=== PATIENT | female | born 1980 | race Caucasian/White ===

== ENCOUNTER 2017-05-21 16:19 | Emergency (ER) | payer OTHER ==
[~2017-05-21] VITALS: Ht 175.3 cm; Wt 104.5 kg
[~2017-05-21 16:19] MED LIST: Z.0.NO CURRENT MEDS
[2017-05-21 16:20] VITALS: BP 140/76; PULSE 102; RESP 20; TEMP 99.1; O2SAT 100
--- NOTE | 2017-05-21 16:56 | PD ---
HPI Chief Complaint: Injury Time Seen by Provider: 16:46 Travel History International Travel<30 days: No Contact w/Intl Traveler<30days: No Traveled to known affect area: No History of Present Illness HPI 36-year-old female presents to the emergency room for evaluation of right hand pain and swelling after injury just prior to arrival. Patient is primarily Slovenian-speaking but prefers to have her friend translate for her. States while at work, she was running and accidentally slammed the back of her hand against the door. She reports immediate pain. Pain is localized to the right dorsal, proximal hand with radiation into the wrist. Worse with range of motion. States she took ibuprofen with moderate relief in symptoms. She denies paresthesias. No chronic medical conditions or daily medications. PFSH Past Medical History Anxiety: No Depression: No Cancer: No Cardiovascular Problems: No Chemotherapy: No Diabetes: Yes Patient Takes Glucophage: No Endocrine: Yes (HYPOGLYCEMIA) Genitourinary: No Musculoskeletal: No Neurologic: No Psychiatric: No Reproductive: No Respiratory: No Radiation Therapy: No Tetanus Vaccination: > 5 Years Influenza Vaccination: No ?: Not LMP: 05/11/17 Past Surgical History Abdominal Surgery: No AICD: No Cardiac Surgery: No Ear Surgery: No Endocrine Surgery: No Eye Surgery: No Genitourinary Surgery: No Gynecologic Surgery: No Joint Replacement: No Oral Surgery: No Pacemaker: No Thoracic Surgery: No Other Surgery: Yes (CHILDHOOD ABDOMINAL SURGERY) Social History Alcohol Use: No Tobacco Use: No Substance Use: No Allergies-Medications (Allergen,Severity, Reaction): Coded Allergies: No Known Allergies (Verified Adverse Reaction, Unknown, 05/21/17) Reported Meds & Prescriptions Reported Meds & Active Scripts Active No Active Prescriptions or Reported Medications Review of Systems Except as stated in HPI: all other systems reviewed are Neg Physical Exam Narrative GENERAL: Well-nourished, well-developed female in no acute distress. Afebrile. Ambulatory. SKIN: Focused skin assessment warm/dry. No ecchymosis. HEAD: Normocephalic. EYES: No scleral icterus. No injection or drainage. NECK: Supple, trachea midline. No JVD or lymphadenopathy. CARDIOVASCULAR: Regular rate and rhythm without murmurs, gallops, or rubs. RESPIRATORY: Breath sounds equal bilaterally. No accessory muscle use. MUSCULOSKELETAL: No cyanosis. Mild edema over the dorsal, proximal hand. 2+ radial pulse. Less than 2 second capillary refill distally. Limited range of motion of the hand secondary to pain. Data Data Last Documented VS Vital Signs Date Time Temp Pulse Resp B/P (MAP) Pulse Ox O2 Delivery O2 Flow Rate FiO2 05/21/17 16:20 99.1 102 20 140/76 (97) 100 Room Air Orders Orders Hand, Complete ([id number]) (05/21/17 ) MDM Medical Decision Making Medical Screen Exam Complete: Yes Emergency Medical Condition: Yes Medical Record Reviewed: Yes Differential Diagnosis Fracture, sprain, strain, contusion Narrative Course 36-year-old right-handed female presents to the emergency room for evaluation of right hand pain and swelling after injury just prior to arrival. Patient accidentally slammed the back of her hand against a door causing immediate pain. Physical exam reveals mild edema over the right dorsal, proximal aspect of the hand. No obvious contusion or deformity. 2+ radial pulse. X-ray shows no acute bony abnormality. This is contusion. Patient discharged with contusion instructions and told to follow-up the primary care physician or return for worsening symptoms. She understands and agrees to plan. Diagnosis Primary Impression: Contusion of right hand Qualified Codes: S60.221A - Contusion of right hand, initial encounter Referrals: Primary Care Physician Additional Instructions: Rest and drink plenty of fluids. Take ibuprofen with food as directed, as needed for pain. Apply ice to the affected area for 20 minutes at a time, as needed for pain and swelling. Follow-up with a primary care physician. Return to the emergency room for worsening symptoms. Med/Other Pt SpecificInfo: Prescription(s) given Scripts No Active Prescriptions or Reported Meds Disposition: 01 DISCHARGE HOME Condition: Stable Antonette Fink May 21, 2017 16:56
--- NOTE | 2017-05-21 17:37 | RADRPT ---
EXAM DATE/TIME: 05/21/2017 17:21 [facility] COMPARISON: No previous studies available for comparison. INDICATIONS : Right hand pain after patient slammed hand in door today MEDICAL HISTORY : None. SURGICAL HISTORY : None. ENCOUNTER: Initial ACUITY: 1 day PAIN SCORE: 7/10 LOCATION: Right entire hand FINDINGS: Three view examination of the right hand demonstrates no soft tissue swelling, dislocation, or fractu re. The carpal bones appear intact. The interphalangeal and metacarpophalangeal joints are intact. Bony mineralization is normal. CONCLUSION: 1. There is no evidence of acute fracture. Gilberto Doan MD on May 21, 2017 at 17:34 Board Certified Radiologist. This report was verified electronically.
== END 2017-05-21 17:57 | disposition home or self-care (01) ==
LOC: NEPK 16:19
DX: S60.221A Contusion of right hand, initial encounter (principal); W22.8XXA Striking against or struck by other objects, initial encounter; E11.9 Type 2 diabetes mellitus without complications
CPT/HCPCS: 73130; 99283

== ENCOUNTER 2017-05-26 13:59 | Emergency (ER) | payer OTHER ==
[~2017-05-26] VITALS: Ht 175.3 cm; Wt 104.5 kg
[2017-05-26 14:00] VITALS: BP 138/67; PULSE 89; RESP 14; TEMP 98.3; O2SAT 98
[2017-05-26 17:24] LABS: BILIRUBIN, URINE NEG (NEG); BLOOD, URINE SMALL (NEG); GLUCOSE,URINE NEG (NEG); KETONE, URINE NEG (NEG); MUCUS URINE FEW /lpf (OCC); NITRITE,URINE NEG (NEG); PH, URINE 6.5 (5.0-8.5); SQUAMOUS EPITHELIAL CELL URINE 2 /hpf (0-5); URINE COLOR LIGHT-YELLOW (YELLW/STRAW); URINE LEUKOCYTE ESTERASE NEG (NEG)
[2017-05-26 17:35] LABS: AUTOMATED NEUTROPHIL # 9.7 TH/MM3 (1.8-7.7); BASOPHIL # 0.1 TH/MM3 (0-0.2); BASOPHIL % 0.8 % (0.0-2.0); EOSINOPHIL # 0.1 TH/MM3 (0-0.4); EOSINOPHIL % 0.9 % (0.0-4.0); HEMATOCRIT 41.7 % (35.0-46.0); HEMOGLOBIN 14.4 GM/DL (11.6-15.3); LYMPHOCYTE # 2.8 TH/MM3 (1.0-4.8); MEAN CELL VOLUME 84.8 FL (80.0-100.0); MEAN CORPUSCULAR HEMOGLOBIN 29.2 PG (27.0-34.0); MEAN CORPUSCULAR HGB CONC 34.4 % (32.0-36.0); MEAN PLATELET VOLUME 9.4 FL (7.0-11.0); MONO % 4.3 % (0.0-8.0); MONOCYTE # 0.6 TH/MM3 (0-0.9); PLATELET COUNT 286 TH/MM3 (150-450); RED BLOOD COUNT 4.92 MIL/MM3 (4.00-5.30); RED CELL DISTRIBUTION WIDTH 14.4 % (11.6-17.2); WHITE BLOOD COUNT 13.3 TH/MM3 (4.0-11.0)
--- NOTE | 2017-05-26 17:38 | PD ---
HPI Chief Complaint: GI Complaint Time Seen by Provider: 17:30 Travel History International Travel<30 days: No Contact w/Intl Traveler<30days: No Traveled to known affect area: No History of Present Illness HPI 36-year-old female with history of diverticulitis, here for evaluation of lower abdominal pain. Patient reports that the symptoms started today, described as pressure, 8 out of 10, constant, worse with movement and palpation. She is also having some dysuria. She denies vaginal bleeding or discharge. LMP was . No vomiting or diarrhea. No fevers. Pain radiates to her back. She denies history of abdominal surgeries. PFSH Past Medical History Anxiety: No Depression: No Cancer: No Cardiovascular Problems: No Chemotherapy: No Diabetes: Yes Endocrine: Yes (HYPOGLYCEMIA) Genitourinary: No Musculoskeletal: No Neurologic: No Psychiatric: No Reproductive: No Respiratory: No Radiation Therapy: No ?: Unknown LMP: 04/11/17 Past Surgical History Abdominal Surgery: No AICD: No Cardiac Surgery: No Ear Surgery: No Endocrine Surgery: No Eye Surgery: No Genitourinary Surgery: No Gynecologic Surgery: No Joint Replacement: No Oral Surgery: No Pacemaker: No Thoracic Surgery: No Other Surgery: Yes (CHILDHOOD ABDOMINAL SURGERY) Social History Alcohol Use: No Tobacco Use: No Substance Use: No Allergies-Medications (Allergen,Severity, Reaction): Coded Allergies: No Known Allergies (Verified Adverse Reaction, Unknown, 05/26/17) Reported Meds & Prescriptions Reported Meds & Active Scripts Active No Active Prescriptions or Reported Medications Review of Systems Except as stated in HPI: all other systems reviewed are Neg Physical Exam Narrative GENERAL: Well-developed, well-nourished, overweight, comfortable, no apparent distress. SKIN: Focused skin assessment warm/dry. HEAD: Atraumatic. Normocephalic. EYES: Pupils equal and round. No scleral icterus. No injection or drainage. ENT: Mucous membranes pink and moist. NECK: Trachea midline. No JVD. CARDIOVASCULAR: Regular rate and rhythm. RESPIRATORY: No accessory muscle use. Clear to auscultation. Breath sounds equal bilaterally. GASTROINTESTINAL: Abdomen soft, nondistended. Moderate lower abdominal tenderness bilaterally as well as suprapubic tenderness without peritoneal signs. No hernias. Normal bowel sounds. MUSCULOSKELETAL: No obvious deformities. No clubbing. No cyanosis. No edema. NEUROLOGICAL: Awake and alert. No obvious cranial nerve deficits. Motor grossly within normal limits. Normal speech. PSYCHIATRIC: Appropriate mood and affect; insight and judgment normal. Data Data Last Documented VS Vital Signs Date Time Temp Pulse Resp B/P (MAP) Pulse Ox O2 Delivery O2 Flow Rate FiO2 05/26/17 14:00 98.3 89 14 138/67 (90) 98 Orders Orders Complete Blood Count With Diff (05/26/17 14:34) Comprehensive Metabolic Panel (05/26/17 14:34) Lipase (05/26/17 14:34) Urinalysis - C+S If Indicated (05/26/17 14:34) Ed Urine Pregnancytest Poc (05/26/17 14:34) Prothrombin Time / Inr (Pt) (05/26/17 17:34) Act Partial Throm Time (Ptt) (05/26/17 17:34) Ct Abd/Pel W Iv Contrast(Rout) (05/26/17 17:35) Morphine Inj (Morphine Inj) (05/26/17 17:45) Iohexol 350 Inj (Omnipaque 350 Inj) (05/26/17 20:00) Ciprofloxacin (Cipro) (05/26/17 20:30) Metronidazole (Flagyl) (05/26/17 20:30) Morphine Inj (Morphine Inj) (05/26/17 20:30) Labs Laboratory Tests Test 05/26/17 16:30 05/26/17 16:37 05/26/17 17:50 Urine Color LIGHT-YELLOW Urine Turbidity CLEAR Urine pH 6.5 Urine Specific Lennox 1.012 Urine Protein NEG mg/dL Urine Glucose (UA) NEG mg/dL Urine Ketones NEG mg/dL Urine Occult Blood SMALL Urine Nitrite NEG Urine Bilirubin NEG Urine Urobilinogen LESS THAN 2.0 MG/DL Urine Leukocyte Esterase NEG Urine RBC LESS THAN 1 /hpf Urine WBC LESS THAN 1 /hpf Urine Squamous Epithelial Cells 2 /hpf Urine Mucus FEW /lpf Microscopic Urinalysis Comment CULT NOT INDICATED White Blood Count 13.3 TH/MM3 Red Blood Count 4.92 MIL/MM3 Hemoglobin 14.4 GM/DL Hematocrit 41.7 % Mean Corpuscular Volume 84.8 FL Mean Corpuscular Hemoglobin 29.2 PG Mean Corpuscular Hemoglobin Concent 34.4 % Red Cell Distribution Width 14.4 % Platelet Count 286 TH/MM3 Mean Platelet Volume 9.4 FL Neutrophils (%) (Auto) 73.0 % Lymphocytes (%) (Auto) 21.0 % Monocytes (%) (Auto) 4.3 % Eosinophils (%) (Auto) 0.9 % Basophils (%) (Auto) 0.8 % Neutrophils # (Auto) 9.7 TH/MM3 Lymphocytes # (Auto) 2.8 TH/MM3 Monocytes # (Auto) 0.6 TH/MM3 Eosinophils # (Auto) 0.1 TH/MM3 Basophils # (Auto) 0.1 TH/MM3 CBC Comment DIFF FINAL Differential Comment Blood Urea Nitrogen 8 MG/DL Creatinine 0.66 MG/DL Random Glucose 83 MG/DL Total Protein 8.3 GM/DL Albumin 3.7 GM/DL Calcium Level 9.1 MG/DL Alkaline Phosphatase 86 U/L Aspartate Amino Transf (AST/SGOT) 15 U/L Alanine Aminotransferase (ALT/SGPT) 46 U/L Total Bilirubin 0.3 MG/DL Sodium Level 137 MEQ/L Potassium Level 3.4 MEQ/L Chloride Level 104 MEQ/L Carbon Dioxide Level 24.5 MEQ/L Anion Gap 9 MEQ/L Estimat Glomerular Filtration Rate 102 ML/MIN Lipase 87 U/L Prothrombin Time 9.6 SEC Prothromb Time International Ratio 0.9 RATIO Activated Partial Thromboplast Time 24.4 SEC [facility] Medical Decision Making Medical Screen Exam Complete: Yes Emergency Medical Condition: Yes Differential Diagnosis Appendicitis, colitis, diverticulitis, UTI, cystitis, ovarian cyst, ovarian torsion less likely, PID, TOA, Narrative Course Initial vital signs show heart rate 89, blood pressure 138/67, pulse ox 98% on room air, tympanic temp of 98.3F. CBC: WBC 13.3, hemoglobin 14.4, hematocrit 41.7, platelets 286. CMP is essentially unremarkable. Lipase is 87. UA is not suggestive of UTI. CT abdomen pelvis: CONCLUSION: Wall thickening the sigmoid colon with adjacent evidence of diverticulitis. No abscess, free fluid, or free air is identified Patient was made aware of all findings. 4 mg of IV morphine initially alleviated patient's symptoms, however on reassessment she states her pain is returning. There are no peritoneal signs on exam. She prefers to be treated as an outpatient. I believe she is stable for discharge home with oral antibiotics and outpatient follow-up with a primary care physician this week. She was advised on when to return to the emergency department. She verbalizes understanding and agreement with plan. Diagnosis Primary Impression: Acute diverticulitis Referrals: [facility] 3 days Primary Care Physician 3 days Additional Instructions: Follow-up with a primary care physician this week. Take antibiotics as prescribed. Return to the emergency department for worsening symptoms or any other concerns. Scripts Hydrocodone-Acetaminophen (Hydrocodone-Acetaminophen) 5-325 mg Tab 1 TAB PO Q6H Y for PAIN, #15 TAB 0 Refills Prov: Robert Dubon MD 05/26/17 Metronidazole (Flagyl) 500 Mg Tab 500 MG PO BID for Infection for 10 Days, #20 TAB 0 Refills Prov: Robert Dubon MD 05/26/17 Ciprofloxacin (Cipro) 500 Mg Tab 500 MG PO BID for Infection for 10 Days, #20 TAB 0 Refills Prov: Robert Dubon MD 05/26/17 Disposition: 01 DISCHARGE HOME Condition: Stable Robert Dubon MD May 26, 2017 17:38
[2017-05-26 17:41] LABS: ALBUMIN 3.7 GM/DL (3.4-5.0); AST (GOT) 15 U/L (15-37); BICARBONATE 24.5 MEQ/L (21.0-32.0); BLOOD UREA NITROGEN 8 MG/DL (7-18); CALCIUM 9.1 MG/DL (8.5-10.1); CHLORIDE 104 MEQ/L (98-107); CREATININE 0.66 MG/DL (0.50-1.00); GLOMERULAR FILTRATION RATE 102 ML/MIN (>89); GLUCOSE,RANDOM 83 MG/DL (74-106); LIPASE 87 U/L (73-393); SODIUM (NA) 137 MEQ/L (136-145)
[2017-05-26 17:42] LABS: ALT (GPT) 46 U/L (10-53)
[2017-05-26 17:44] LABS: ALKALINE PHOSPHATASE 86 U/L (45-117); TOTAL BILIRUBIN ADULT 0.3 MG/DL (0.2-1.0); TOTAL PROTEIN 8.3 GM/DL (6.4-8.2)
[2017-05-26] MEDS ORDERED: MORPHINE SULFATE 2 MG/ML INJ IV PUSH ONE ×2 (17:45→20:30)
[2017-05-26 19:27] LABS: INTERNATIONAL NORMALIZED RATIO 0.9 RATIO; PROTHROMBIN TIME - PATIENT 9.6 SEC (9.8-11.6)
[2017-05-26] MEDS ORDERED: IOHEXOL 350 MG/ML 10 ML VIAL (for RAD DIAG) IVCONTRAST ONE (20:00)
--- NOTE | 2017-05-26 20:20 | RADRPT ---
EXAM DATE/TIME: 05/26/2017 19:41 [facility] COMPARISON: No previous studies available for comparison. INDICATIONS : Lower abdomen pain today. IV CONTRAST: 97 cc Omnipaque 350 (iohexol) IV ORAL CONTRAST: No oral contrast ingested. RADIATION DOSE: 12.55 CTDIvol (mGy) MEDICAL HISTORY : Diverticulitis. SURGICAL HISTORY : None. ENCOUNTER: Initial ACUITY: 1 day PAIN SCALE: 7/10 LOCATION: Bilateral lower quadrant TECHNIQUE: Volumetric scanning of the abdomen and pelvis was performed. Using automated exposure control and ad justment of the mA and/or kV according to patient size, radiation dose was kept as low as reasonably achievable to obtain optimal diagnostic quality images. DICOM format image data is available electro nically for review and comparison. FINDINGS: LOWER LUNGS: The visualized lower lungs are clear. LIVER: Homogeneous density without lesion. There is no dilation of the biliary tree. No calcified gallston es. SPLEEN: Normal size without lesion. PANCREAS: Within normal limits. KIDNEYS: Normal in size and shape. There is no mass, stone or hydronephrosis. ADRENAL GLANDS: Within normal limits. VASCULAR: There is no aortic aneurysm. BOWEL/MESENTERY: There is wall thickening of the sigmoid colon with adjacent thickening of the peritoneal lining suspi cious for diverticulitis. ABDOMINAL WALL: Within normal limits. RETROPERITONEUM: There is no lymphadenopathy. BLADDER: No wall thickening or mass. REPRODUCTIVE: Within normal limits. INGUINAL: There is no lymphadenopathy or hernia. MUSCULOSKELETAL: Within normal limits for patient age. CONCLUSION: Wall thickening the sigmoid colon with adjacent evidence of diverticulitis. No abscess, free fluid, o r free air is identified. Kerwin Griffin MD on May 26, 2017 at 20:17 Board Certified Radiologist. This report was verified electronically.
[2017-05-26] MEDS ORDERED: metroNIDAZOLE 500 MG TAB PO ONE (20:30)
[2017-05-26] MEDS ORDERED: CIPROFLOXACIN 500 MG TAB PO ONE (20:30)
[2017-05-26] MEDS ORDERED: CIPR-9 PO (20:36)
[2017-05-26] MEDS ORDERED: HYDR-3516 PO (20:36)
[2017-05-26] MEDS ORDERED: METR-1 PO (20:36)
== END 2017-05-26 21:18 | disposition home or self-care (01) ==
LOC: NEPD 13:59
DX: K57.92 Diverticulitis of intestine, part unspecified, without perforation or abscess without bleeding (principal); R30.0 Dysuria; E11.9 Type 2 diabetes mellitus without complications
CPT/HCPCS: 74177; 80053; 81001; 83690; 84703; 85025; 85610; 85730; 96374; 96376; 99285; J2270; Q9967

== ENCOUNTER 2018-04-26 15:19 | Inpatient (IN) ==
[2018-04-26] MEDS ORDERED: Sod Chloride 0.9% Inj 1,000 ML IV.SIG SCH (15:45)
--- NOTE | 2018-04-26 15:57 | ED ---
HPI General Chief complaint: [employer]ICE [employer]WORK [employer] Stated complaint: medical Time Seen by Provider: 04/26/18 15:28 Source: patient Mode of arrival: ambulatory Limitations: no limitations History of Present Illness HPI narrative: Patient is a 37 year old female who comes in complaining of severe abdominal pain. She was seen here yesterday and diagnosed with ectopic . She was seen by OB and received Methotrexate. She says at 1PM today she started to have severe pain to her abdomen. The pain is all over, worse in the LLQ. She says the pain also goes into her right shoulder. She reports some dizziness. Denies shortness of breath or chest pain. She has not taken anything for pain. She has not noticed any vaginal bleeding. Severity is moderate to severe. Related Data Home Medications Medication Instructions Recorded Confirmed No Known Home Medications 04/25/18 04/26/18 Allergies Allergy/AdvReac Type Severity Reaction Status Date / Time No Known Allergies Allergy Verified 04/25/18 13:50 Review of Systems ROS: all other systems reviewed are negative Constitutional Denies chills and Denies fever(s) ENT Reports dizziness and Denies headache(s) Cardiovascular Denies chest pain and Denies dyspnea Respiratory Denies cough and Denies dyspnea Gastrointestinal Reports abdominal pain Genitourinary Denies abnormal vaginal bleeding Musculoskeletal Denies myalgias and Denies arthralgias Integumentary/Breasts Denies sores and Denies wounds Neurologic Denies focal weakness and Denies numbness [facility] Medical History Medical History Bone spur of left foot (Acute) Diabetes (Acute) Diverticulosis (Acute) Surgical History Surgical History No history of previous surgery (Acute) Social History Social History Substance History: No History of Abuse Second Hand Smoke Exposure: No Smoking Status: Never smoker How Often Do You Have a Drink Containing Alcohol: Never Recent Travel in [facility] within the Last 8 Weeks: No Recent Out of Country Travel within the Last 8 Weeks: No Exam Narrative Exam Narrative: GENERAL: Awake and alert, in mild distress due to pain. SKIN: Focused skin assessment warm/dry. HEAD: Atraumatic. Normocephalic. EYES: Pupils equal and round. No scleral icterus. No injection or drainage. ENT: No nasal bleeding or discharge. Mucous membranes pink and moist. NECK: Trachea midline. No JVD. CARDIOVASCULAR: Regular rate and rhythm. No murmur appreciated. RESPIRATORY: No accessory muscle use. Clear to auscultation. Breath sounds equal bilaterally. GASTROINTESTINAL: Abdomen soft, but very tender to palpation. Patient has guarding and mild rebound tenderness. MUSCULOSKELETAL: No obvious deformities. No clubbing. No cyanosis. No edema. NEUROLOGICAL: Awake and alert. No obvious cranial nerve deficits. Motor grossly within normal limits. Normal speech. PSYCHIATRIC: Appropriate mood and affect; insight and judgment normal. Procedures Ultrasound POC Ultrasound Procedure: Emergency department E-FAST was performed with patient consent. The curvilinear probe was used in the right upper quadrant/Morison's pouch, suprapubic, left upper quadrant/spleenorenal space, epigastric. Possible free fluid in the RUQ. Course Initial Documented Vital Signs Temperature 97.2 F L 04/26/18 15:21 Pulse Rate 100 H 04/26/18 15:21 Respiratory Rate 18 04/26/18 15:21 Blood Pressure 105/60 04/26/18 15:21 Pulse Oximetry 98 04/26/18 15:21 Last Documented Vital Signs Temperature 97.2 F L 04/26/18 15:21 Pulse Rate 94 H 04/26/18 15:23 Respiratory Rate 20 04/26/18 15:23 Blood Pressure 103/59 L 04/26/18 15:23 Pulse Oximetry 98 04/26/18 15:23 Medical Decision Making [facility] Narrative Medical decision making narrative: Patient is a 37 year old female who comes in complaining of abdominal pain. she has known history of ectopic , so bedside ultrasound performed immediately, concerning for possible fluid in the RUQ. I called the OB hospitalist who will come see the patient. 15:43: spoke with OB hospitalist, Dr. Evans, and asked him to come down to see the patient due to concerns for ruptured ectopic . Discussed possible free fluid in RUQ seen on bedside ultrasound. Labs sent. Given IVF. 16:05: Dr. Evans at bedside, official US being performed. Patient will be admitted for surgical management. Medical Screen Exam Complete: Yes Emergency Medical Condition: Yes Differential Diagnosis Differential Diagnosis: ruptured ectopic vs affects of methotrexate vs dehydration Medical Records Medical records reviewed: Yes I reviewed the patient's medical records. Lab Data Lab results reviewed: Yes I reviewed the patient's lab results. Result diagrams: 04/26/18 15:49 04/26/18 15:49 Lab Results 04/26/18 04/26/18 04/26/18 Range/Units 15:49 15:49 15:49 WBC 15.4 H (4.0-11.0) th/mm3 RBC 4.18 (4.00-5.30) mil/mm3 Hgb 12.1 (11.6-15.3) gm/dL Hct 36.4 (35.0-46.0) % MCV 87.1 (80.0-100.0) fL MCH 29.1 (27.0-34.0) pg MCHC 33.4 (32.0-36.0) % RDW 14.4 (11.6-17.2) % Plt Count 241 (150-450) th/mm3 MPV 9.2 (7.0-11.0) fL Neut % (Auto) 90.8 H (16.0-70.0) % Lymph % (Auto) 5.4 L (9.0-44.0) % Linn % (Auto) 3.3 (0.0-8.0) % Eos % (Auto) 0.1 (0.0-4.0) % Baso % (Auto) 0.4 (0.0-2.0) % Neut # (Auto) 14.0 H (1.8-7.7) th/mm3 Lymph # (Auto) 0.8 L (1.0-4.8) th/mm3 Linn # (Auto) 0.5 (0.0-0.9) th/mm3 Eos # (Auto) 0.0 (0.0-0.4) th/mm3 Baso # (Auto) 0.1 (0.0-0.2) th/mm3 WBC Differential . Differential Comment Auto diff final PT 10.3 (9.8-11.6) sec INR 1.0 Ratio APTT 23.5 (23.4-31.7) sec Sodium 139 (136-145) meq/L Potassium 3.6 (3.5-5.1) meq/L Chloride 107 (98-107) meq/L Carbon Dioxide 21.5 (21.0-32.0) meq/L Anion Gap 11 (5-15) meq/L BUN 10 (7-18) mg/dL Creatinine 0.88 (0.50-1.00) mg/dL Estimated GFR 73 L (>89) mL/min Random Glucose 175 H (74-106) mg/dL Calcium 8.3 L D (8.5-10.1) mg/dL Total Bilirubin 0.9 (0.2-1.0) mg/dL AST 89 H (15-37) U/L ALT 138 H (10-53) U/L Alkaline Phosphatase 89 (45-117) U/L Total Protein 7.8 (6.4-8.2) g/dL Albumin 3.5 (3.4-5.0) g/dL Beta HCG, Quant 1217 H (0-5) mIU/mL Blood Type Antibody Screen 04/26/18 Range/Units 15:49 WBC (4.0-11.0) th/mm3 RBC (4.00-5.30) mil/mm3 Hgb (11.6-15.3) gm/dL Hct (35.0-46.0) % MCV (80.0-100.0) fL MCH (27.0-34.0) pg MCHC (32.0-36.0) % RDW (11.6-17.2) % Plt Count (150-450) th/mm3 MPV (7.0-11.0) fL Neut % (Auto) (16.0-70.0) % Lymph % (Auto) (9.0-44.0) % Linn % (Auto) (0.0-8.0) % Eos % (Auto) (0.0-4.0) % Baso % (Auto) (0.0-2.0) % Neut # (Auto) (1.8-7.7) th/mm3 Lymph # (Auto) (1.0-4.8) th/mm3 Linn # (Auto) (0.0-0.9) th/mm3 Eos # (Auto) (0.0-0.4) th/mm3 Baso # (Auto) (0.0-0.2) th/mm3 WBC Differential Differential Comment PT (9.8-11.6) sec INR Ratio APTT (23.4-31.7) sec Sodium (136-145) meq/L Potassium (3.5-5.1) meq/L Chloride (98-107) meq/L Carbon Dioxide (21.0-32.0) meq/L Anion Gap (5-15) meq/L BUN (7-18) mg/dL Creatinine (0.50-1.00) mg/dL Estimated GFR (>89) mL/min Random Glucose (74-106) mg/dL Calcium (8.5-10.1) mg/dL Total Bilirubin (0.2-1.0) mg/dL AST (15-37) U/L ALT (10-53) U/L Alkaline Phosphatase (45-117) U/L Total Protein (6.4-8.2) g/dL Albumin (3.4-5.0) g/dL Beta HCG, Quant (0-5) mIU/mL Blood Type A Positive Antibody Screen Negative Discharge Plan Discharge Disposition Patient Disposition: ED Admit(ED Internal Use Only) Discharge Condition Condition: Stable Discharge Order Discharge Orders: ED Use Only Admit Order (Routine); Ordered 04/26/18 Ordered By: Sola Cruz Discharge Details Diagnosis: Ectopic Physicians Team ED Provider: Sola Cruz Primary Care Provider: Primary Care Xin Mooney Attending Provider: Deisi No Status ED Status: Admitted Patient
[2018-04-26 16:02] LABS: Baso # (Auto) 0.1 th/mm3 (0.0-0.2); Baso % (Auto) 0.4 % (0.0-2.0); Eos % (Auto) 0.1 % (0.0-4.0); Hematocrit 36.4 % (35.0-46.0); Hemoglobin 12.1 gm/dL (11.6-15.3); Lymph # (Auto) 0.8 th/mm3 (1.0-4.8); Lymph % (Auto) 5.4 % (9.0-44.0); Mean Corpuscular HGB Conc 33.4 % (32.0-36.0); Mean Corpuscular Hemoglobin 29.1 pg (27.0-34.0); Mean Corpuscular Volume 87.1 fL (80.0-100.0); Mean Platelet Volume 9.2 fL (7.0-11.0); Mono # (Auto) 0.5 th/mm3 (0.0-0.9); Mono % (Auto) 3.3 % (0.0-8.0); Neut % (Auto) 90.8 % (16.0-70.0); Platelet Count 241 th/mm3 (150-450); Red Blood Count 4.18 mil/mm3 (4.00-5.30); Red Cell Distribution Width 14.4 % (11.6-17.2); White Blood Count 15.4 th/mm3 (4.0-11.0)
[2018-04-26 16:17] LABS: Activated Partial Thrombo Time 23.5 sec (23.4-31.7); Prothrombin Time 10.3 sec (9.8-11.6)
[2018-04-26 16:21] LABS: Alanine Aminotransferase 138 U/L (10-53); Albumin 3.5 g/dL (3.4-5.0); Anion Gap 11 meq/L (5-15); Aspartate Aminotransferase 89 U/L (15-37); Blood Urea Nitrogen 10 mg/dL (7-18); Calcium 8.3 mg/dL (8.5-10.1); Carbon Dioxide 21.5 meq/L (21.0-32.0); Chloride 107 meq/L (98-107); Glomerular Filtration Rate 73 mL/min (>89); Glucose,Random 175 mg/dL (74-106); Potassium 3.6 meq/L (3.5-5.1); Sodium 139 meq/L (136-145)
[2018-04-26 16:24] LABS: Alkaline Phosphatase 89 U/L (45-117); Total Protein 7.8 g/dL (6.4-8.2)
[2018-04-26 16:44] LABS: Beta HCG,Quantitative 1217 mIU/mL (0-5)
--- NOTE | 2018-04-26 16:46 | P.CONOB ---
History of Present Illness Reason for Consult: abdominal pain, concern for ruptured ectopic Primary Care Physician: No Primary Care Physician Chief Complaint: abdominal pain History of Present Illness: Patient is a 37 yo who returns to ED with c/o abdominal pain. She has known left ectopic diagnosed 04/25/2018 and received Methotrexate yesterday. LMP 03/05/2018, making her 7 weeks and 3 days today. She states menses are irregular Pt was seen in ED 04/25/2018 with amenorrhea, positive test and abdominal pain right more than left,and US findings suggestive of LEFT ectopic . Pt had quant hCG of 3088 and nothing intrauterine. Options were reviewed and pt opted for medical management of the left sided ectopic with Methotrexate. Patient reports new onset pain mainly on left lower abdomen, starting 12 noon. Pain constant, sharp. Denies nausea or vomiting. Normal GI function. She denies dizziness or fainting. Review of Systems All other systems reviewed negative except as stated in HPI PMFSH - History History Provided By: Patient - Medical History Medical History: Medical History (Last Reviewed 04/26/18 @ 16:19 by Sola Cruz MD) Bone spur of left foot Diabetes Diverticulosis - Surgical History Surgical History: Surgical History (Last Reviewed 04/26/18 @ 16:19 by Sola Cruz MD) No history of previous surgery - Tobacco History Second Hand Smoke Exposure: No Smoking Status: Never smoker - Alcohol History How Often Do You Have a Drink Containing Alcohol: Never - Substance Use History Substance History: No History of Abuse - Travel History Recent Travel in the [place] Within the Last 8 Weeks: No Recent Travel Out of the Country Within the Last 8 Weeks: No - Immunization History Tetanus Immunization: Unsure Medications and Allergies Active Medications: Active Medications Sodium Chloride (Ns Inj) 1,000 mls @ 1,000 mls/hr IV.SIG BOLUS IZA Stop: 04/26/18 16:44 Last Admin: 04/26/18 16:00 Dose: 1,000 mls/hr Allergies Allergy/AdvReac Type Severity Reaction Status Date / Time No Known Allergies Allergy Verified 04/25/18 13:50 Home Medications Medication Instructions Recorded Confirmed Type No Known Home Medications 04/25/18 04/26/18 History Exam Vital signs: Vital Signs 04/26/18 15:21 04/26/18 15:23 Temperature 97.2 F L Pulse Rate 100 H 94 H Respiratory Rate 18 20 Blood Pressure 105/60 103/59 L Pulse Oximetry 98 98 Narrative: GENERAL: Obese, appears in discomfort SKIN: Warm and dry. HEAD: Normocephalic and atraumatic. EYES: No scleral icterus. No injection or drainage. ENT: No nasal drainage noted. Mucous membranes pink. Airway patent. NECK: Supple, trachea midline. No JVD. CARDIOVASCULAR: Regular rate and rhythm without murmurs, gallops, or rubs. RESPIRATORY: Breath sounds equal bilaterally. No accessory muscle use. BREASTS: Bilateral exam showed no masses , no retractions, no nipple discharge. ABDOMEN/GI: Abdomen soft, TENDER , bowel sounds present, no rebound, no guarding No masses palpable. GENITOURINARY: External Genitalia: intact and normal in appearance Vaginal exam deferred after TV sonogram. EXTREMITIES: No cyanosis or edema. BACK: Nontender without obvious deformity. No CVA tenderness. NEUROLOGICAL: Awake and alert. Motor and sensory grossly within normal limits. Five out of 5 muscle strength in all muscle groups. Normal speech. - Constitutional no acute distress - Routine HEENT Exam Head: Present: normocephalic Eye: Present: PERRL Results - Labs CBC & Chem 7: 04/26/18 15:49 04/26/18 15:49 Labs: Laboratory Results - last 24 hr 04/26/18 04/26/18 15:49 15:49 WBC 15.4 H RBC 4.18 Hgb 12.1 Hct 36.4 MCV 87.1 MCH 29.1 MCHC 33.4 RDW 14.4 Plt Count 241 MPV 9.2 Neut % (Auto) 90.8 H Lymph % (Auto) 5.4 L Hand % (Auto) 3.3 Eos % (Auto) 0.1 Baso % (Auto) 0.4 Neut # (Auto) 14.0 H Lymph # (Auto) 0.8 L Hand # (Auto) 0.5 Eos # (Auto) 0.0 Baso # (Auto) 0.1 WBC Differential . Differential Comment Auto diff final Blood Type A Positive Assessment and Plan - Diagnosis (1) Ectopic Code(s): O00.90 - Unspecified ectopic without intrauterine Status: Acute Plan: Patient is a 37 yo , with 7 weeks and 3 days amenorrhea , positive test, with left ectopic diagnosed yesterday, and given Methotrexate. She presents today with new onset pain left lower quadrant. She is hemodynamically stable with Hg 12.1g/dL today but US still shows intact ectopic but with increased amount of hemoperitoneum. I suspect leaking left ectopic . I have discussed case with Dr Deisi No , covering for [employer]. Plan is to proceed to laparoscopy and possible salpingectomy. Pt states she last ate at 11:00, and will be NPO. Labs have been sent off for type/cross.
--- NOTE | 2018-04-26 16:55 | US ---
EXAM DATE: 04/26/2018 4:42 PM EST AGE/SEX: 37 years / Female INDICATIONS: Pelvic pain. CLINICAL DATA: This is the patient's subsequent encounter. Patient reports that signs and symptoms h ave been present for 3 days and indicates a pain score of 10/10. MEDICAL/SURGICAL HISTORY: . Diabetes. Bone spur left foot. Diverticulosis. None. COMPARISON: [facility], US PELVIC (QUEST PREG/ECT) W TV, 04/25/2018. . TECHNIQUE: Real-time ultrasound of the pelvis was performed using an endovaginal transducer. [facility] [place]: Uterus:__10.5 x 7.6 x 6.5 cm Endometrial Stripe:__18 mm Right Ovary:__ 2.8 x 2.5 x 1.8 cm Left Ovary:__ 2.4 x 2.5 x 1.3 cm FINDINGS: Uterus: Uterus is heterogeneous with lobulated contour containing fibroids unchanged from yesterday' s examination. The endometrium remains thickened but no gestational sac is identified within the endo metrial cavity. Right Ovary: In the right adnexa there is a round mildly echogenic partially cystic mass measuring 3 .0 x 2.6 cm that is associated with the right ovary. No pole is identified within the cystic po rtion. Left Ovary: Left adnexa is of very heterogeneous and contains what appears to represent a ovary asso ciated with a round hypoechoic structure measuring 2.7 x 1.4 x 2.1 cm and within this hypoechoic stru cture is an echogenic ringlike cystic lesion. The cystic area also demonstrates no embryo or yolk sac . Other: There is increased complex fluid in the pelvis with suspected blood clot in the posterior cul -de-sac. CONCLUSION: Persistent of unknown location with findings highly suspicious for ectopic with i ncreased hemoperitoneum compared to yesterday's examination. These findings were telephoned to Dr. Cruz at the time of this dictation. Electronically signed by: Andrade Larson MD 04/26/2018 4:54 PM EST
[2018-04-26] MEDS ORDERED: Lidocaine PF 1% Inj 5 ML Syringe OTHER ONE (17:22)
[2018-04-26] MEDS ORDERED: fentaNYL Citrate Inj 100 MCG/2 ML Ampul ONE (19:27)
[2018-04-26] MEDS ORDERED: Ketorolac Inj 30 MG/ML (IVP) Vial IV.PUSH SCH (20:00)
[2018-04-26 21:53] VITALS: BP 92/56; PULSE 99; RESP 22; TEMP 98.4; O2SAT 97
--- NOTE | 2018-04-28 14:35 | P.OP ---
- Preoperative Diagnosis (1) Ectopic - Postoperative Diagnosis (1) Ruptured right tubal ectopic causing hemoperitoneum (2) Chronic PID (chronic pelvic inflammatory disease) Date of procedure: 04/26/18 Procedure: Laparoscopy lysis of adhesions and right salpingectomy Anesthesia: PETER Surgeon: Deisi No MD Estimated blood loss (mL): 475 (hemoperitoneum accounts for about 450 cc with surgery adding about 25 cc) Pathology: other (right fallopian tube) Operation and Findings: Indications: [Patient is a 37 y/o with a history, labs and imaging suspicious for a right ectopic , was administered methotrexate yesterday with instructions for follow up. She returns today with symptoms and ultrasound suspicious for ruptured ectopic . She is hemodynamically stable.-] Findings: [Ruptured right ectopic tubal with hematometium, moderate pelvic adhesions, and evidence of uterine fibroids (as seen on u/s).-] Procedure: The patient was taken to the operating room and general anesthesia was administered with intubation. The patient was then positioned in low stirrups, and after prep and drape a Chris catheter was placed. An open-sided speculum was placed and the anterior lip of the cervix was grasped with a tenaculum and the Hulka was placed in the uterus. The 12mm trocar was placed in the umbilicus after insufflation with a Veress needle. Then under direct visualization and using transillumination to avoid major blood vessels, 5mm ports were placed in the right and left lower quadrants. The scope was used with a grasper to note the findings described above. Then using the Harmonic scalpel, the right utero-ovarian ligament was divided. The tube was from the ovary, again with the harmonic, and then transected at the uterus as withdrawn from the pelvis as specimen in an EndoCatch bag. The suction- relay engineer was used throughout the case, and employed at the end of the case to check each pedicle, the ovaries and to irrigate out any remaining clots and debris. Additional adhesiolysis was required to access the cul de sac and free both ovaries. The case being complete, the pneumoperitoneum was released, the ports were removed, and the umbilical incision was closed on the fascia with 0 Vicryl. 4-0 Monocryl was used subcuticularly on the skin edges, followed by sealing with Dermabond. The patient was awakened and taken to the recovery room awake and breathing on her own. She tolerated the procedure well. Sponge, needle and instrument counts were correct.
== END 2018-04-26 21:05 | disposition home or self-care (01) | DRG 818 ==
LOC: NEPD 15:19 → NEDA 16:48
PROVIDERS: ADMIT Obstetrics & Gynecology; ATTEND Obstetrics & Gynecology
PROC: LAPSALP (ICD-10-PCS; 2018-04-26 17:22)
CPT/HCPCS: 76700; 76817; 76830; 80053; 81001; 82948; 82962; 83690; 84702; 85025; 85610; 85730; 86850; 86900; 86901; 88305; 90761; 90774; 90784; 96361; 96374; 99284; 99285; C8952; J1100; J1885; J2250; J2405; J2704; J3010; J7030; J9250